=== PATIENT | male | born 1995 | race Caucasian/White ===

== ENCOUNTER 2017-01-31 19:40 | Emergency (ER) | payer OTHER ==
[~2017-01-31] VITALS: Ht 172.7 cm; Wt 81.8 kg
[2017-01-31 19:43] VITALS: BP 130/87; PULSE 79; RESP 16; O2SAT 98
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
[2017-01-31] MEDS ORDERED: 0.9% Sodium Chloride 1,000 ML IV ONE (20:01)
[2017-01-31] MEDS ORDERED: Ondansetron 2 mg/mL 2 mL Inj IVPUSH PRN (20:05)
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
[2017-01-31 20:27] LABS: MONOCYTES % (AUTO) 9 % (4-12); Mean Corpuscular Hemoglobin 31.1 pg (27.0-35.0); Mean Corpuscular Volume 85.7 fL (81-100); NEUTROPHILS % (AUTO) 70 % (40-74); Platelet Count 316 bil/L (150-400)
[2017-01-31 20:28] LABS: BASOPHILS % (AUTO) 0 % (0-3); EOSINOPHILS % (AUTO) 1 % (0-5)
[2017-01-31 20:33] LABS: INR 0.99 ratio
[2017-01-31] MEDS: HYDROmorphone 1 mg/mL Inj IVPUSH PRN ×2 (20:39→21:31)
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
[2017-01-31] MEDS ORDERED: TdaP Vaccine 0.5 mL Inj IM ONE (20:55)
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
--- NOTE | 2017-01-31 21:32 | DRSVH ---
PROCEDURE: X-RAY RIGHT SHOULDER, MINIMUM TWO VIEWS ([id number]) INDICATIONS: trauma TECHNIQUE: 3 views of the shoulder were acquired. COMPARISON: None. FINDINGS: Bones: No fractures or dislocations. No suspicious bony lesions. Visualized ribs appear intact. Soft tissues: No suspicious soft tissue calcifications. IMPRESSION: No trauma found. Dictated by: Pantera Oliveira M.D. on 01/31/2017 at 21:30 Approved by: Pantera Oliveira M.D. on 01/31/2017 at 21:30
[2017-01-31] MEDS ORDERED: Tissue Adhesive Liq (CS Supplied) TOPICAL ONE (22:00)
[2017-01-31] MEDS ORDERED: _HYDROcodone/APAP 5-325 mg Tablet PO PRN (22:15)
[2017-01-31 23:29] VITALS: BP 122/74; PULSE 78; RESP 18; O2SAT 97
== END 2017-01-31 23:29 | disposition home or self-care (01) ==
LOC: SED 19:40
DX: S01.01XA Laceration without foreign body of scalp, initial encounter (principal); S01.81XA Laceration without foreign body of other part of head, initial encounter; S06.0X0A Concussion without loss of consciousness, initial encounter; S40.211A Abrasion of right shoulder, initial encounter; S50.311A Abrasion of right elbow, initial encounter; S60.511A Abrasion of right hand, initial encounter; V86.59XA Driver of other special all-terrain or other off-road motor vehicle injured in nontraffic accident, initial encounter; Y93.89 Activity, other specified; Y92.89 Other specified places as the place of occurrence of the external cause; Y99.8 Other external cause status; Z23 Encounter for immunization; Z88.2 Allergy status to sulfonamides
CPT/HCPCS: 12002; 12011; 36415; 70450; 71010; 71260; 72125; 72170; 73030; 73080; 73110; 73130; 73630; 80053; 85014; 85018; 85025; 85610; 85730; 86850; 90471; 90715; 93005; 96374; 96375; 99285; G0480; J1170; J2405; J7030; Q9967

== ENCOUNTER 2017-02-07 11:38 | Emergency (ER) | payer OTHER | END 2017-02-07 11:40 | disposition home or self-care (01) | LOC: SED 11:38 | DX: Z48.02 Encounter for removal of sutures (principal) ==